=== PATIENT | male | born 1950 | race Caucasian/White ===

== ENCOUNTER 2017-12-12 00:09 | Inpatient (IN) | payer MEDICARE ==
[~2017-12-12] VITALS: Ht 167.6 cm; Wt 73.5 kg
[~2017-12-12 00:09] MED LIST: DULO20CA; HYDR200C; INSU100V27; INSU100V7; LISI-607; OXYC30TA2 PO
--- NOTE | 2017-12-12 00:09 | NUR ---
to bed 9 [facility] paramedics c/o altered mental status, and rectal bleeding. receive pt altered very restless, agitated, uncooperative, pale. place pt on cardiac monitoring, continuous pox. er md at bedside to eval pt with orders received. will carry out orders.
--- NOTE | 2017-12-12 00:21 | NUR ---
noted pt with agonal breathing, unresponsive, place pt on o2@15L/nonrebreather mask. er md at bedside with orders received. rt paged, pt prepped for intubation.
--- NOTE | 2017-12-12 00:21 | NUR ---
Note nelson in EDM - 12/12/17 at 0130 by RUDY noted pt with agonal breathing, unresponsive. er at bedside with orders received. rt paged, pt prepped for intubation.
--- NOTE | 2017-12-12 00:23 | NUR ---
IO started by dr. saleh on the R tibial plateau.
--- NOTE | 2017-12-12 00:25 | NUR ---
code called see code sheet.
--- NOTE | 2017-12-12 00:31 | NUR ---
pulse checked, CPR held, bagging, no femoral pulse per naheed sepulveda, pulse foudn by er [id number]. pt prepped for intubation, 2nd rt at bedside to assist.
--- NOTE | 2017-12-12 00:33 | NUR ---
intubation meds given by rn to RAC 16g.
--- NOTE | 2017-12-12 00:35 | NUR ---
JOSE MIGUEL Fajardo held Levophed drip and moved to R tibial plateau, 1st unit of PRBC (O negative) started by JOSE MIGUEL Woods on the RAC 16g.
--- NOTE | 2017-12-12 00:37 | NUR ---
Pt intubated with ET-Tube 7.5 fr, 23cm at the lip line with (+) color change on the CO2 detector with equal bilateral breath sounds. o2 sat 93% post intubation, BP 48/25, hr-146.
--- NOTE | 2017-12-12 00:43 | NUR ---
2nd and 3rd unit of O negative started by JOSE MIGUEL Woods and verified by myself per er md order.
[2017-12-12] MEDS ORDERED: SODIUM BICARBONATE SYR 50 MEQ/50 ML DISP.SYRIN ONE ×2 (00:44→01:20)
--- NOTE | 2017-12-12 00:45 | NUR ---
PT MEDICATED PER MD'S ORDERS. DRIP RATES SET PER MD'S ORDERS.
[2017-12-12 00:46] LABS: LYMPHOCYTES # (AUTO) 8.3 /CMM (0.8-4.8); LYMPHOCYTES % (AUTO) 7.2 % (20.0-44.0); MEAN CORPUSCULAR HGB CONC 27 g/dl (31.0-36.0); MEAN CORPUSCULAR VOLUME 93 fL (80-96); MONOCYTES # (AUTO) 0.9 /CMM (0.1-1.30); MONOCYTES % (AUTO) 0.8 % (2.0-12.0); NEUTROPHILS # (AUTO) 105.5 /CMM (1.8-8.9); PLATELET COUNT (AUTO) 532 /CMM (150-450); RDW COEFFICIENT OF VARIATION 24.1 (11.5-15.0)
--- NOTE | 2017-12-12 00:47 | NUR ---
RT place pt on vent AC-20, TV-450, PEEP-5, FIO2-100%.
[2017-12-12] MEDS ORDERED: EPINEPHRINE (1:1000) MDV 30 MG/30ML VIAL ONE (00:49)
--- NOTE | 2017-12-12 00:50 | NUR ---
jose de jesus eric stating LIJ central line.
--- NOTE | 2017-12-12 00:51 | NUR ---
ABG done by rt.
[2017-12-12 01:01] LABS: HEMOGLOBIN 5.4 g/dL (13.5-17.5); WHITE BLOOD COUNT (AUTO) 115.9 K/uL (4.3-11.0)
[2017-12-12 01:02] LABS: HEMATOCRIT 20 % (39-51)
[2017-12-12 01:05] LABS: ALBUMIN 1.9 g/dL (3.4-5.0); BILIRUBIN,TOTAL 0.2 mg/dL (0.2-1.0); CALCIUM, SERUM 8.5 mg/dL (8.5-10.1); CREATININE 2.4 mg/dL (0.6-1.3); TOTAL PROTEIN, SERUM 4.2 g/dL (6.4-8.2)
[2017-12-12 01:06] LABS: TROPONIN I 0.189 ng/mL (0.00-0.056)
--- NOTE | 2017-12-12 01:06 | NUR ---
ORAL G-TUBE 14FR INSERTED PER ER MD ORDER, CONNECTED TO INTERMITTENT SUCTION WITH 1600ML'S COFFEE GROUND GASTRIC CONTENT NOTED. ER MD MADE AWARE.
[2017-12-12 01:08] LABS: POTASSIUM 7.7 mmol/L (3.5-5.1)
[2017-12-12 01:11] LABS: INR 1.47 (0.87-1.13)
[2017-12-12] MEDS ORDERED: Sodium Bicarbonate 50 MEQ in IV NS 0.9% 1,000 ML IV STA (01:11)
[2017-12-12] MEDS ORDERED: INSULIN REGULAR, HUMAN 100 UNIT/ML 10 ML VIAL ONE ×2 (01:20→03:18)
[2017-12-12] MEDS ORDERED: NOREPINEPHRINE 4 MG/4 ML AMPUL IV ONE ×3 (01:26→07:50)
[2017-12-12] MEDS ORDERED: INSULIN REGULAR, HUMAN 100 UNIT in IV NS 0.9% 99 ML IV PRN ×6 (01:30→04:30)
[2017-12-12] MEDS ORDERED: INSULIN REGULAR, HUMAN 100 UNIT/ML 10 ML VIAL IV ONE (01:30)
[2017-12-12] MEDS ORDERED: PANTOPRAZOLE 80 MG in IV NS 0.9% 500 ML IV PRN (01:30)
[2017-12-12] MEDS ORDERED: DOPamine 400MG/D5W 250ML RTU 250 ML IV ONE (01:34)
[2017-12-12] MEDS ORDERED: TRANEXAMIC ACID 1,000 MG in IV NS 0.9% 100 ML IV ONE (01:58)
[2017-12-12] MEDS ORDERED: EPINEPHRINE (1:1000) 1 MG/ML AMPUL ONE (01:59)
[2017-12-12] MEDS ORDERED: DOPamine 400 MG/D5W 250 ML RTU PIGGYBACK IV ONE ×2 (02:00→02:30)
--- NOTE | 2017-12-12 02:09 | NUR ---
jose de jesus eric talking to pt friend and pt son regarding pt status.
[2017-12-12] MEDS ORDERED: IV NS 0.9% 1,000 ML IV PRN (02:14)
--- NOTE | 2017-12-12 02:19 | NUR ---
er md spoke to dr. Rooney regarding pt admission.
[2017-12-12] MEDS ORDERED: MAG HYDROX/AL HYDROX/SIMETH 30 ML UDC PO PRN (02:30)
[2017-12-12] MEDS ORDERED: Z GUARD REMEDY 2 OZ OINT TP PRN (02:30)
[2017-12-12] MEDS ORDERED: PANTOPRAZOLE IV PRN (02:30)
[2017-12-12] MEDS ORDERED: HYDROCODONE/APAP 5/325MG 1 EACH TABLET PO PRN (02:30)
[2017-12-12] MEDS ORDERED: ACETAMINOPHEN 325 MG TABLET PO PRN (02:30)
[2017-12-12] MEDS ORDERED: NS 0.9% IV PRN (02:30)
[2017-12-12] MEDS ORDERED: ZOLPIDEM TARTRATE 5 MG TABLET PO PRN (02:30)
[2017-12-12] MEDS ORDERED: ONDANSETRON HCL/PF 4 MG/2 ML VIAL IVP PRN (02:30)
[2017-12-12] MEDS ORDERED: NOREPINEPHRINE 16 MG in IV D5W 500 ML IV PRN (02:30)
[2017-12-12] MEDS ORDERED: MAGNESIUM HYDROXIDE 30 ML UDC PO PRN (02:30)
[2017-12-12 02:46] LABS: BAND % (MANUAL) 23 % (0.0-5.0); EOSINOPHILS % (MANUAL) 2 % (0-4); LYMPHOCYTES % (MANUAL) 8 % (16-48); MONOCYTES % (MANUAL) 2 % (0-11.0); MYELOCYTES % 1 % (0-0); NEUTROPHILS % (MANUAL) 63 (42-76); PROMYELOCYTES % 1 % (0-0)
[2017-12-12] MEDS ORDERED: PANTOPRAZOLE 40 MG VIAL ONE (02:48)
--- NOTE | 2017-12-12 03:07 | NUR ---
REPORT GIVEN TO LITERACY COACH DEANDRE. WILL TRANSPORT PT VIA ACLS PROTOCOL.
--- NOTE | 2017-12-12 03:10 | NUR ---
RT PT INTUBATED VIA MD WITH 7.5 ETT @ 23CM LIP AND PLACED ON [facility] VENT WITH NOTED SETTING PER MD. VENT TO RED OUTLET. ALARMS SET A AUDIBLE. AMBU BAG AT HOB.POSITIVE CO2 COLOR CHANGE. BILATERAL BREATHS SOUND AND BILATERAL CHEST RISE/FALL OBSERVED. ETT PATENT AND SECURE VIA ANCHOR FAST. FERN PICKER DONE. PT TOLERATING VENT SETTING WELL. WILL CONTINUE TO MONITOR. SX MOD AMOUNT OF THICK COFFEE GROUND SECRETION POST INTUBATION. Addendum: 12/12/17 at 0314 by YASH KINCAID RT Amended: Links added.
[2017-12-12] MEDS ORDERED: EPINEPHRINE (1:1000) 2 MG in IV D5W 250 ML IV STA (03:50)
[2017-12-12] MEDS ORDERED: Calcium Gluconate 0.465 MEQ/ML VIAL IV ONE (03:55)
[2017-12-12] MEDS ORDERED: ETOMIDATE 2 MG/ML VIAL IV ONE ×2 (04:00→07:50)
[2017-12-12] MEDS ORDERED: Calcium Gluconate 1GM/10ML 4.65 MEQ in IV NS 0.9% 50 ML IV ONE (04:00)
[2017-12-12] MEDS ORDERED: ROCURONIUM BROMIDE 50 MG/5 ML IV ONE (04:00)
[2017-12-12] MEDS ORDERED: SODIUM BICARBONATE SYR 50 MEQ/50 ML DISP.SYRIN IV ONE ×3 (04:00→07:50)
[2017-12-12] MEDS ORDERED: EPINEPHRINE (1:10,000) SYRINGE 1 MG/10 ML DISP.SYRIN IV ONE (04:00)
--- NOTE | 2017-12-12 04:20 | NUR ---
TRUCKLOAD CHECKER - NOTES - RECEIVED PT FROM ER, ADMITTED FOR GI BLEED, COMPLAINING OF DIZZINESS, ANEMIA AND ALTERED MENTAL STATUS. PT CODED IN ER, WAS INTUBATED WITH 7.5 ETT, 23 CM AT LIP. SBP WAS IN 30S-40S, PT WAS STARTED ON PRESSORS, LEVOPHED, EPINEPHRINE, DOPAMINE, PROTONIX, INSULIN DRIP, BICARB DRIP. PT WAS GIVEN 7 UNITS PRBC, 2 UNIT FFP. PT IS STILL BLEEDING FROM MOUTH, OGT PLACED TO SUCTION OVER 1.5 LITERS OF BLOOD OUT. BLOOD PRESSURE, 2 MORE UNITS OF BLOOD WILL BE GIVEN. PT HAS LIJ TLC, R TIBIA IO, R AC 16G. SKIN INTACT. WILL CONTINUE TO MONITOR
[2017-12-12 04:21] VITALS: BP 100/93
[2017-12-12] MEDS ORDERED: EPINEPHRINE (1:1000) 2 MG in IV D5W 250 ML IV PRN (04:30)
[2017-12-12 04:57] VITALS: BP 41/22
[2017-12-12] MEDS ORDERED: CALCIUM CHLORIDE 1,000 MG/10 ML DISP.SYRIN ONE (05:15)
--- NOTE | 2017-12-12 05:30 | NUR ---
PT CODED @ 0509, PEA ARREST, SEE CODE BLUE SHEET. MD AT BEDSIDE. PT CODED UNTIL 0530, CODE UNSUCCESSFUL. FAMILY NOTIFIED, MD NOTIFIED, [facility] CALLED, PT DENIED. PUBLIC EVENTS FACILITIES RENTAL MANAGER NOTIFIED, RELEASED BY OFFICER MAEVE.
[2017-12-12 06:13] LABS: ABG BASE EXCESS -28.9 mmol/L; ABG OXYGEN SATURATION 97.6 % (92.0-98.5); ABG PCO2 59.7 mmHg (35.0-45.0); ABG PH 6.619 (7.350-7.450); ABG PO2 385.7 mmHg (75.0-100.0); AaDO2 267.6 mmHg; COHb 1.1 % (0.5-1.5); MetHb 1.1 % (0.0-1.5); O2Hb 95.5 % (94.0-97.0); PEEP,BG 5 cm H2O; SITE, ABG Right Radial; VENT MODE, BG AC 14/450/100%/+5; VT, ABG 450 mL
[2017-12-12] MEDS ORDERED: FEE EMEERGENCY 1 MIN EA MC ONE ×2 (07:50)
[2017-12-12] MEDS ORDERED: AMIODARONE 150 MG/3 ML VIAL IV ONE (07:50)
[2017-12-12] MEDS ORDERED: EPINEPHRINE (1:10,000) SYRINGE 1 MG/10 ML DISP.SYRIN IVP ONE ×2 (07:50)
[2017-12-12] MEDS ORDERED: CALCIUM CHLORIDE 1,000 MG/10 ML DISP.SYRIN IV ONE (07:50)
[2017-12-12] MEDS ORDERED: ROCURONIUM BROMIDE 100 MG/10 ML VIAL IV ONE (07:50)
== END 2017-12-12 07:51 | disposition expired | DRG 377 ==
LOC: ER 00:11 → ICU 02:03
PROVIDERS: ADMIT Internal Medicine; ATTEND Internal Medicine
PROC: 5A1935Z Respiratory Ventilation, Less than 24 Consecutive Hours (ICD-10-PCS; principal; 2017-12-12)
PROC: 0BH17EZ Insertion of Endotracheal Airway into Trachea, Via Natural or Artificial Opening (ICD-10-PCS; 2017-12-12)
PROC: 30233K1 Transfusion of Nonautologous Frozen Plasma into Peripheral Vein, Percutaneous Approach (ICD-10-PCS; 2017-12-12)
PROC: 30233N1 Transfusion of Nonautologous Red Blood Cells into Peripheral Vein, Percutaneous Approach (ICD-10-PCS; 2017-12-12)
PROC: 30233R1 Transfusion of Nonautologous Platelets into Peripheral Vein, Percutaneous Approach (ICD-10-PCS; 2017-12-12)
PROC: 5A2204Z Restoration of Cardiac Rhythm, Single (ICD-10-PCS; 2017-12-12)
DX: K92.2 Gastrointestinal hemorrhage, unspecified (principal); I21.4 Non-ST elevation (NSTEMI) myocardial infarction; I46.9 Cardiac arrest, cause unspecified; G93.41 Metabolic encephalopathy; R57.9 Shock, unspecified; K51.90 Ulcerative colitis, unspecified, without complications; E87.2 Acidosis; E87.5 Hyperkalemia; E11.65 Type 2 diabetes mellitus with hyperglycemia; I10 Essential (primary) hypertension; Z98.890 Other specified postprocedural states; M54.30 Sciatica, unspecified side; D21.9 Benign neoplasm of connective and other soft tissue, unspecified; Z79.4 Long term (current) use of insulin; Z79.899 Other long term (current) drug therapy; F09 Unspecified mental disorder due to known physiological condition
CPT/HCPCS: 36415; 36600; 71045-TC; 80048-TC; 80076-TC; 82962-TC; 83605-TC; 83690-TC; 84484-TC; 85025-TC; 85730-TC; 86850-TC; 86921-TC; 92950-TC; 94002-TC; 99082-TC; A4216; A4606; C1751; C9113; J0171; J0282; J0610; J1265; J1815; J3490; J7030; J7040; J7050; J7060; P9016-BL; P9017-BL; Z7610